=== PATIENT | female | born 1985 | race African-American/Black ===

== ENCOUNTER 2017-10-04 02:59 | Emergency (ER) | payer MEDICARE, MEDICAID ==
[~2017-10-04] VITALS: Ht 165.1 cm; Wt 69.0 kg
[~2017-10-04 02:59] MED LIST: ACYC-63 PO; ALBU18HF IH; AMLO10TA2 PO; AMOX500C PO; CLON1TAB3 PO; DOCU-109 PO; DOXY100C2 PO; Doxycycline Hyclate PO; FAMO-63 PO; FLUD0.1T PO; FLUO20CA16 PO; FURO-69 PO; GABA600T2 PO; INSU100I13 SQ; INSU100I17 SQ; LEXAPRO10 MG PO; LISI10TA2 PO; LISI20TA PO; LORA10TA68 PO; METO-313 PO; METO10TA81 PO; METO25TA4 PO; MULT-505 PO; OMEP20TA8 PO; ONDA4TAB10 PO; ONDA4TAB10 SL; OXYC-323 PO; OXYC-328 PO; PANT40TA3 PO; PROM12.56 PO; SIMV20TA3 PO; TAMS0.4C2 PO; TRAM50TA PO; TRAZ-90 PO; ZOLP10TA PO
--- NOTE | 2017-10-04 03:01 | ED.ADGEN ---
Past History Past Medical History: Abscess, Anemia, CAD, CVA, Depression, Diabetes, High Cholesterol, Hypertension, UTI, Other Past Surgical History: , Other Smoking: Cigarettes, Greater than 1 pack/day Alcohol Use: None Drug Use: None, Cocaine, Marijuana, Other (+ Drug screen for Cocaine and Marjuana in 08/27/2016. ) Adult General Chief Complaint Chief Complaint " min. response-" HPI HPI Patient is a 31 year old female who presents with hx of mental status change at [facility]. Pt. found on Nursing rounds to be very diaphoretic. Pt. glucose was found to be 43, and received glucagon IM. Pt. reportedly now near her baseline mental status of GSC of 6#. Pt. resident fo [facility]. since admission 09/19/2017, after reported respiratory failure, code and CVA with severe anoxic brain damage in Jul of this year.. Pt. Hx. of HTN, GERD, Dysphagia, Bipolar Depression, DM, Enterocolitis, Hyperlipidemia, UTI, Hx. of polysubstance abuse, neuromuscular dysfunction of bladder, acute on chronic respiratory failure with placement of trach. Pt. follows with Dr. Eliza Portillo. Pt. had two Fentanyl patches that were removed in route to hospital because of her decreased mental status. Glucose on arrival at 201. Pt. reportedly on arrival to ED, more alert per paramedics. Pt. does appear to be looking around, but no focus. Smacks her lips. Grunts and grimaces with noxious stimuli. Pt has Minimal response and minimal. cross reacts. Has splints on arms, and air cushions of ankles and feet. Feeding tube, trachea, and port on chest wall. Sister at bedsides states her sister Tonia is at her base line mentally currently. Sister reports her sister had extensive brain damage after Respiratory arrest and Code- CPR after surgery in Jul. of this past year. Pt. reportedly has only brain stem activity since the code at per sister Clarissa Standard. Sister is a guardian and requesting her transfer to . Review of Systems Review of Systems Limited because of pt. mental status Family History Family History DM Current Medications Current Medications Current Medications Medications (Trade) Dose Ordered Sig/Venus Start Time Stop Time Status Last Admin Dose Admin Acetaminophen (Tylenol) 500 mg STK-MED ONCE 10/04/17 05:18 10/04/17 05:19 DC Dextrose 50 ml @ As Directed STK-MED ONCE 10/04/17 03:21 10/04/17 03:22 DC Folic Acid (FOLIC ACID SYRINGE for ER) 5 mg STK-MED ONCE 10/04/17 03:49 10/04/17 03:50 DC Lactated Ringer's 1,000 ml @ 1,000 mls/hr 1X ONCE 10/04/17 06:15 10/04/17 06:24 DC 10/04/17 05:51 1,000 MLS/HR Meropenem (Merrem) 1 gm STK-MED ONCE 10/04/17 05:18 10/04/17 05:19 DC Meropenem 1 gm/ Sodium Chloride 100 ml @ 200 mls/hr ONCE ONCE 10/04/17 05:30 10/04/17 06:00 DC 10/04/17 05:37 200 MLS/HR Multivitamins/ Minerals 10 ml/ Folic Acid 1 mg/ Thiamine HCl 100 mg/Dextrose/ Sodium Chloride 1,011.1 ml @ 1,000 mls/ hr 1X ONCE 10/04/17 03:15 10/04/17 04:15 DC 10/04/17 03:56 1,000 MLS/HR Sodium Chloride 100 ml @ As Directed STK-MED ONCE 10/04/17 05:19 10/04/17 05:20 DC Thiamine HCl 200 mg STK-MED ONCE 10/04/17 03:49 10/04/17 03:50 DC Vancomycin HCl (Vancomycin) 1 gm STK-MED ONCE 10/04/17 04:25 10/04/17 04:26 DC Vancomycin HCl 1 gm/Sodium Chloride 250 ml @ 250 mls/hr 1X ONCE 10/04/17 04:15 10/04/17 05:14 DC 10/04/17 04:15 250 MLS/HR See Nursing for Home meds Allergies Allergies Allergies Coded Allergies Type Severity Reaction Last Updated Verified No Known Drug Allergies 07/05/16 No Physical Exam Physical Exam Constitutional: Min. response to noxious stimuli, no acute distress, non-toxic appearance. [Grimaces with pain- stimuli. HENT: Normocephalic, atraumatic, bilateral external ears normal, oropharynx moist, no oral exudates, nose normal. [] Eyes: PERRLA, EOMI, conjunctiva normal, no discharge. [] Neck: Normal range of motion, no tenderness, supple, no stridor. Trachea. Shield Mask. Cardiovascular:Tachycardia Heart rate regular rhythm, no murmur [] Lungs & Thorax: Bilateral breath sounds equal at apex with some wheezes and basilar crackles on Lt with auscultation [] Abdomen: Bowel sounds normal, soft, no tenderness, no masses, no pulsatile masses. Peg. Surgery scars. Distended, tympanic. Skin: Warm, diaphoretic, no erythema, no rash. Areas of some skin break down on rachelle points. Back: No tenderness, no CVA tenderness. [] Extremities: No tenderness, no cyanosis, no clubbing, ROM intact, no edema. Splinted. Amputation partial Rt foot. Neurologic: Alert at her baseline per sister Clarissa Standard, but not oriented , smacks lips, limited motor function, unable to adequately access sensory function, move limbs to noxious, but does not cross reacts. Psychologic: Affect flat] Current Patient Data Vital Signs Vital Signs Date Time Temp Pulse Resp B/P (MAP) Pulse Ox O2 Delivery O2 Flow Rate FiO2 10/04/17 05:49 121 21 142/115 (124) 100 NonRebreather Mask 12.0 10/04/17 03:00 96.9 Lab Results Laboratory Tests Test 10/04/17 03:20 10/04/17 03:21 10/04/17 03:25 10/04/17 04:10 Urine Collection Type Unknown Urine Color Yellow Urine Clarity Cloudy Urine pH 5.5 Urine Specific [place] 1.015 Urine Protein >100 mg/dl (NEG-TRACE) Urine Glucose (UA) Neg mg/dL (NEG) Urine Ketones (Stick) Trace mg/dL (NEG) Urine Blood Small (NEG) Urine Nitrite Pos (NEG) Urine Bilirubin Neg (NEG) Urine Urobilinogen Dipstick 0.2 mg/dL (0.2 mg/dL) Urine Leukocyte Esterase Large (NEG) Urine RBC 1-2 /HPF (0-2) Urine WBC >40 /HPF (0-4) Urine Squamous Epithelial Cells Mod /LPF Urine Bacteria Many /HPF (0-FEW) Maternal Serum HCG Beta Subunit < 1 mIU/mL (0-6) Sodium Level 140 mmol/L (136-145) Potassium Level 4.5 mmol/L (3.5-5.1) Chloride Level 104 mmol/L (98-107) Carbon Dioxide Level 27 mmol/L (21-32) Anion Gap 9 (6-14) Blood Urea Nitrogen 40 mg/dL (7-20) H Creatinine 1.3 mg/dL (0.6-1.0) H Estimated GFR (Cockcroft-Gault) 57.8 Glucose Level 361 mg/dL (70-99) H Calcium Level 9.7 mg/dL (8.5-10.1) Magnesium Level 1.8 mg/dL (1.8-2.4) Creatine Kinase 35 U/L (26-192) Creatine Kinase MB (Mass) 1.7 ng/mL (0.0-3.6) Creatine Kinase MB Relative Index 4.9 % (0-4) H Troponin I Quantitative 0.038 ng/mL (0-0.055) KO-[id number]-Type Natriuretic Peptide 144 pg/mL (0-124) H Glucose (Fingerstick) 201 mg/dL (70-99) H White Blood Count 24.6 x10^3/uL (4.0-11.0) H Red Blood Count 3.08 x10^6/uL (3.50-5.40) L Hemoglobin 9.5 g/dL (12.0-15.5) L Hematocrit 28.5 % (36.0-47.0) L Mean Corpuscular Volume 93 fL (79-100) Mean Corpuscular Hemoglobin 31 pg (25-35) Mean Corpuscular Hemoglobin Concent 33 g/dL (31-37) Red Cell Distribution Width 18.3 % (11.5-14.5) H Platelet Count 566 x10^3/uL (140-400) #H Neutrophils (%) (Auto) 91 % (31-73) H Lymphocytes (%) (Auto) 4 % (24-48) L Monocytes (%) (Auto) 4 % (0-9) Eosinophils (%) (Auto) 0 % (0-3) Basophils (%) (Auto) 0 % (0-3) Neutrophils # (Auto) 22.4 x10^3uL (1.8-7.7) H Lymphocytes # (Auto) 1.1 x10^3/uL (1.0-4.8) Monocytes # (Auto) 1.0 x10^3/uL (0.0-1.1) Eosinophils # (Auto) 0.1 x10^3/uL (0.0-0.7) Basophils # (Auto) 0.1 x10^3/uL (0.0-0.2) Segmented Neutrophils % 87 % (35-66) H Band Neutrophils % 5 % (0-9) Lymphocytes % 3 % (24-48) L Monocytes % 4 % (0-10) Eosinophils % 1 % (0-5) Platelet Estimate Increased (ADEQUATE) Anisocytosis Slight Reticulocyte Count (auto) 3.4 % (0.5-2.5) H Prothrombin Time 11.0 SEC (9.4-11.4) Prothrombin Time INR 1.1 (0.9-1.1) PTT 27 SEC (23-33) Lactic Acid Level 1.1 mmol/L (0.4-2.0) Influenza Type A (Rapid) Negative (NEGATIVE) Influenza Type B (Rapid) Negative (NEGATIVE) Test 10/04/17 04:40 10/04/17 04:51 Blood pH 7.37 (7.35-7.45) Blood Gas PCO2 40 mmHg (35-45) Blood Gas PO2 149 mmHg (80-100) H Blood Gas HCO3 24 mmol/L (22-26) Arterial Bld O2 Saturation (Calc) 100 % (92-99) H FiO2 100 % Glucose (Fingerstick) 463 mg/dL (70-99) H EKG EKG My interpretation of EKG shows sinus tach at 114, no findings of acute STEMI with contralateral changes. [] Radiology/Procedures Radiology/Procedures CT of head shows no acute shift, mass, bleed, or fracture. Has diffuse chronic infarcts. Diffuse hypointensity relation. Periventricular white matter hypo attenuated. Enlarged lateral ventricles. Basilar ganglia infarcts.[] My interpretation of CXR shows borderline cardiac silhouette. Some blunting a left closed phrenic angle. Very distended gastric bubble. Adequate placement of port. Trachea midline. Course & Med Decision Making Course & Med Decision Making Pertinent Labs and Imaging studies reviewed. (See chart for details) Distended stomach decompressed by feeding tube route. Air removed. Restarted tube feedings. Pt. will be started on 1 Gm Van. and 1 Gm meropenem- based on past Hx. C-dif, Aspiration and NH. status. Pending transfer to per sisters request. Discussed presentation, testing and tx. plan with Triage [facility] at 4:30 hrs Christine - Transfer team- request Lactic before placement. Called lactic 4:45 hr. Advised they will call back. Christine at [phone] transfer team MICHAEL called back 5:13- advised Dr. Arellano will be accepting pt in transfer to . Room [place] 7125 . [] Final Impression Final Impression 1. Mental Status Change 2. Hx. Hypoglycemia[] 3. Leukocytosis 4. Anemia 5. Thrombocytosis 6. Urinary Tract Infection 7. Sepsis 8. Elevated BUN/ Creat 9. Hx. of Anoxic Brain Injury 07/2017 10. Hx. of C- Dif 11. Hx. Neurogenic Bladder 12. Hx. Chronic Respiratory Failure- S/P Trachea 13. Hx. Chronic Renal Dz- DM 14. Past Hx. Polysubstance Abuse / Tobacco Use 15. Hx. of Recurrent Pneumonia- Suspect Aspiration Problems: Dragon Disclaimer Dragon Disclaimer This electronic medical record was generated, in whole or in part, using a voice recognition dictation system. CARLIE DEL RIO MD Oct 04, 2017 03:01
[2017-10-04] MEDS ORDERED: MVI, ADULT NO.4 WITH VIT K 10 ML, FOLIC ACID SYRINGE for ER 1 MG, THIAMINE 100 MG in IV... IV ONE ×4 (03:15)
[2017-10-04] MEDS ORDERED: IV DEXTROSE 5% 50 ML ONE (03:21)
--- NOTE | 2017-10-04 03:22 | RAD ---
EXAM: CT HEAD WITHOUT CONTRAST. HISTORY: Altered mental status. Recent cerebrovascular accident. TECHNIQUE: Computed tomography of the head was performed without intravenous contrast. COMPARISON: October 04, 2007. FINDINGS: There is no intracranial hemorrhage. There are chronic infarcts bilaterally in the basal ganglia. There is new diffuse hypoattenuation throughout the periventricular white matter. The lateral ventricles are moderately enlarged, increased from the prior study. Right basal ganglia calcifications are chronic. The visualized paranasal sinuses appear clear. The orbits are unremarkable. The temporal bones are unremarkable. The calvarium reveals no suspicious lesions. IMPRESSION: 1. The lateral ventricles are now moderately enlarged for patient age with extensive periventricular white matter hypoattenuation. Correlate for acute hydrocephalus. Comparison with more recent head imaging is recommended. 2. Bilateral basal ganglia infarcts. *One or more of the following individualized dose reduction techniques were utilized for this examination: 1. Automated exposure control. 2. Adjustment of the mA and/or kV according to patient size. 3. Use of iterative reconstruction technique. Electronically signed by: Cynthia Rodriguez MD (10/04/2017 3:19 AM) [facility]
--- NOTE | 2017-10-04 03:26 | EKG ---
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
[2017-10-04 03:45] LABS: BASO # 0.1 x10^3/uL (0.0-0.2); BASO % 0 % (0-3); EOS # 0.1 x10^3/uL (0.0-0.7); EOS % 0 % (0-3); HEMATOCRIT 28.5 % (36.0-47.0); HEMOGLOBIN 9.5 g/dL (12.0-15.5); LYMPH # 1.1 x10^3/uL (1.0-4.8); LYMPH % 4 % (24-48); MEAN CORPUSCULAR HEMOGLOBIN 31 pg (25-35); MEAN CORPUSCULAR HGB CONC 33 g/dL (31-37); MEAN CORPUSCULAR VOLUME 93 fL (79-100); MONO % 4 % (0-9); NEUT # 22.4 x10^3uL (1.8-7.7); NEUT % 91 % (31-73); PLATELET COUNT 566 x10^3/uL (140-400); RED BLOOD COUNT 3.08 x10^6/uL (3.50-5.40); RED CELL DISTRIBUTION WIDTH 18.3 % (11.5-14.5); WHITE BLOOD COUNT 24.6 x10^3/uL (4.0-11.0)
[2017-10-04] MEDS ORDERED: THIAMINE 200 MG/2 ML VIAL. IV ONE (03:49)
[2017-10-04] MEDS ORDERED: FOLIC ACID 5 MG/ML SYRINGE for ER IV ONE (03:49)
[2017-10-04 03:54] LABS: BILIRUBIN,URINE NEG (NEG); CLARITY,URINE CLOUDY; COLOR,URINE YELLOW; GLUCOSE,URINE NEG (NEG); NITRITE,URINE POS (NEG); UROBILINOGEN,URINE 0.2 mg/dL (0.2 mg/dL)
[2017-10-04 03:55] LABS: BACTERIA,URINE MANY /HPF (0-FEW); SQUAMOUS EPITHELIAL CELL,UR MOD /LPF; WBC,URINE >40 /HPF (0-4)
[2017-10-04 04:00] LABS: % BANDS 5 % (0-9); % EOS 1 % (0-5); % LYMPHS 3 % (24-48); % MONOS 4 % (0-10); % SEGS 87 % (35-66); ANISOCYTOSIS SLIGHT; PLT ESTIMATE INCREASED (ADEQUATE)
[2017-10-04 04:14] LABS: CALCIUM 9.7 mg/dL (8.5-10.1); CREATININE 1.3 mg/dL (0.6-1.0); GFR 57.8; MAGNESIUM 1.8 mg/dL (1.8-2.4); POTASSIUM 4.5 mmol/L (3.5-5.1)
[2017-10-04] MEDS ORDERED: IV NORMAL SALINE 1,000ML 1,000 ML IV ONE (04:15)
[2017-10-04] MEDS ORDERED: VANCOMYCIN 1 GM in IV NORMAL SALINE 250ML 250 ML IV ONE (04:15)
[2017-10-04] MEDS ORDERED: IV NORMAL SALINE 250ML 250 ML ONE ×2 (04:21→04:25)
[2017-10-04] MEDS ORDERED: VANCOMYCIN 1 GM VIAL. ONE ×2 (04:21→04:25)
[2017-10-04 04:45] LABS: INFLUENZA A PATIENT NEGATIVE (NEGATIVE); INFLUENZA B PATIENT NEGATIVE (NEGATIVE)
[2017-10-04] MEDS ORDERED: ACETAMINOPHEN 500 MG TABLET PO ONE ×2 (05:15→05:18)
[2017-10-04] MEDS ORDERED: MEROPENEM 1 GM VIAL IV ONE (05:18)
[2017-10-04] MEDS ORDERED: IV NORMAL SALINE 100ML 100 ML ONE (05:19)
[2017-10-04] MEDS ORDERED: MEROPENEM 1 GM in IV NORMAL SALINE 100ML 100 ML IV ONE (05:30)
[2017-10-04 05:49] VITALS: BP 142/115
[2017-10-04 06:07] LABS: BGAS PH 7.37 (7.35-7.45)
[2017-10-04] MEDS ORDERED: IV RINGERS SOLUTION,LACTATED 1,000 ML IV ONE (06:15)
--- NOTE | 2017-10-04 07:18 | RAD ---
Portable chest, 10/04/2017: History: Mental status change Comparison is made to a study from 02/16/2016. A right Port-A-Cath extends into the superior aspect of the right atrium. A tracheostomy tube is in place with its tip located well above the ananda. The heart size and pulmonary vascularity are normal. There is minimal discoid atelectasis in the left base. The right lung is clear. There is no evidence of pleural fluid. There is moderate gaseous distention of the stomach. IMPRESSION: 1. Minimal left basilar atelectasis. 2. Moderate gaseous distention of the stomach.
== END 2017-10-04 06:13 | disposition short-term general hospital (02) ==
LOC: ER 02:59
DX: A41.9 Sepsis, unspecified organism (principal); R65.21 Severe sepsis with septic shock; J96.20 Acute and chronic respiratory failure, unspecified whether with hypoxia or hypercapnia; R41.82 Altered mental status, unspecified; D72.829 Elevated white blood cell count, unspecified; D69.6 Thrombocytopenia, unspecified; N39.0 Urinary tract infection, site not specified; E11.22 Type 2 diabetes mellitus with diabetic chronic kidney disease; I12.9 Hypertensive chronic kidney disease with stage 1 through stage 4 chronic kidney disease, or unspecified chronic kidney disease; N18.9 Chronic kidney disease, unspecified; F19.10 Other psychoactive substance abuse, uncomplicated; I25.10 Atherosclerotic heart disease of native coronary artery without angina pectoris; E78.00 Pure hypercholesterolemia, unspecified; F17.210 Nicotine dependence, cigarettes, uncomplicated; F31.9 Bipolar disorder, unspecified; K21.9 Gastro-esophageal reflux disease without esophagitis; F12.10 Cannabis abuse, uncomplicated; F14.10 Cocaine abuse, uncomplicated; Z86.73 Personal history of transient ischemic attack (TIA), and cerebral infarction without residual deficits; Z93.0 Tracheostomy status
CPT/HCPCS: 36415; 36600; 70450; 71045; 80048; 81001; 82553; 82803; 82947; 83605; 83735; 83880; 84484; 84702; 85007; 85025; 85045; 85610; 85730; 87040; 87086; 87186; 87804; 93005; 96365; 96366; 96367; 96368; 99285; J2185; J3370; J7050; J7120; J7030

== ENCOUNTER 2017-10-28 21:02 | Emergency (ER) | payer MEDICARE, OTHER ==
--- NOTE | 2017-10-28 21:05 | ED.ADGEN ---
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 Pt. Family requested pt go to . Paramedics elected to have pt. stabilized initially at [facility] because of borderline sats. and glucose too high to monitor. Pt. sister ILEANA Iglesias, by phone insists pt to be transfer to . Not to be admitted at [facility] or [facility]. Pt. currently min. response to noxious stimuli, but sats improved with suctions. Pt. appears dehydrated. Pt. reported had cardiopulmonary arrest at [facility] where she was too get amputation of toes. Pt. reportedly had multiple CVA 's at time of cardiopulmonary arrest. Pt. recently discharge from a [facility] to home care. Pt. reportedly in a persistent depressed GCS since stoke during cardiopulmonary arrest at [facility] in Jul. 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 Family History Family History DM Current Medications Current Medications Current Medications Medications (Trade) Dose Ordered Sig/Venus Start Time Stop Time Status Last Admin Dose Admin Acetaminophen (Tylenol) 650 mg 1X ONCE 10/28/17 22:45 10/28/17 22:47 DC 10/28/17 23:51 650 MG Ceftriaxone Sodium (Rocephin Im) 2 gm 1X ONCE 10/28/17 23:00 10/28/17 23:01 DC 10/28/17 23:15 2 GM Insulin Human Regular 150 unit/ Sodium Chloride 151.5 ml @ 0 mls/hr 1X ONCE 10/28/17 21:15 10/28/17 21:16 DC 10/28/17 21:57 10.2 MLS/HR Lactated Ringer's 1,000 ml @ 0 mls/hr STAT 10/29/17 01:00 10/29/17 01:59 DC 10/29/17 01:07 1,000 MLS/HR Sodium Chloride 1,000 ml @ 1,000 mls/hr 1X ONCE 10/28/17 21:15 10/28/17 22:14 DC 10/28/17 22:25 1,000 MLS/HR Allergies Allergies Allergies Coded Allergies Type Severity Reaction Last Updated Verified No Known Drug Allergies 07/05/16 No Physical Exam Physical Exam Constitutional: moderate distress, ill in appearance. [] HENT: Normocephalic, atraumatic, bilateral external ears normal, oropharynx dry , no oral exudates, nose normal. []Abrasion / sore Lt lower lip. Eyes: PERRLA, EOMI, conjunctiva normal, no discharge. Disc edge blunted-? Hydrocephalus Neck: Normal range of motion, no tenderness, supple, no stridor. No bruit. Trach. - appears inter canula needs cleaning. Cardiovascular:Tachycardia Heart rate regular rhythm, no murmur []Trach. with discolored secretions on suction. Port on Rt. Lungs & Thorax: Bilateral breath sounds rhonchi on auscultation [] Abdomen: Bowel sounds decreased, soft, no tenderness, no masses, no pulsatile masses. [] GI tube. Old surgery scars. Skin: Warm, dry, no erythema, no rash. [] Breakdown on sacral and feet. Back: No obvious tenderness, no CVA tenderness. [] Extremities:No movement with noxious stimuli, no response to Femoral stick for abg. , no edema. Breakdown feet. Amputations Neurologic:Min. response to noxious stimuli. , does not withdraw to noxious. GSC scale is 4-5, will open eyes to voice. Psychologic: Affect flat, no obvious response to verbal other than opening of eyes, or noxious stimuli. . Current Patient Data Vital Signs Vital Signs Date Time Temp Pulse Resp B/P (MAP) Pulse Ox O2 Delivery O2 Flow Rate FiO2 10/29/17 02:05 91 24 114/91 (99) 97 Room Air 10/28/17 23:29 98.5 10/28/17 21:08 10.0 Lab Results Laboratory Tests Test 10/28/17 21:06 10/28/17 21:16 10/28/17 22:25 10/28/17 22:43 Glucose (Fingerstick) 572 mg/dL (70-99) *H 351 mg/dL (70-99) H White Blood Count 14.6 x10^3/uL (4.0-11.0) H Red Blood Count 3.39 x10^6/uL (3.50-5.40) L Hemoglobin 10.6 g/dL (12.0-15.5) L Hematocrit 32.6 % (36.0-47.0) L Mean Corpuscular Volume 96 fL (79-100) Mean Corpuscular Hemoglobin 31 pg (25-35) Mean Corpuscular Hemoglobin Concent 32 g/dL (31-37) Red Cell Distribution Width 14.5 % (11.5-14.5) Platelet Count 442 x10^3/uL (140-400) H Neutrophils (%) (Auto) 85 % (31-73) H Lymphocytes (%) (Auto) 9 % (24-48) L Monocytes (%) (Auto) 5 % (0-9) Eosinophils (%) (Auto) 1 % (0-3) Basophils (%) (Auto) 1 % (0-3) Neutrophils # (Auto) 12.3 x10^3uL (1.8-7.7) H Lymphocytes # (Auto) 1.3 x10^3/uL (1.0-4.8) Monocytes # (Auto) 0.8 x10^3/uL (0.0-1.1) Eosinophils # (Auto) 0.1 x10^3/uL (0.0-0.7) Basophils # (Auto) 0.1 x10^3/uL (0.0-0.2) Prothrombin Time 11.0 SEC (9.4-11.4) Prothrombin Time INR 1.1 (0.9-1.1) PTT 25 SEC (23-33) Urine Collection Type Unknown Urine Color Yellow Urine Clarity Cloudy Urine pH 5.0 Urine Specific [place] <=1.005 Urine Protein 100 mg/dl (NEG-TRACE) Urine Glucose (UA) >=1000 mg/dL (NEG) Urine Ketones (Stick) 15 mg/dL (NEG) Urine Blood Trace (NEG) Urine Nitrite Pos (NEG) Urine Bilirubin Neg (NEG) Urine Urobilinogen Dipstick 0.2 mg/dL (0.2 mg/dL) Urine Leukocyte Esterase Trace (NEG) Urine RBC 0 /HPF (0-2) Urine WBC 11-20 /HPF (0-4) Urine Squamous Epithelial Cells Occ /LPF Urine Bacteria Mod /HPF (0-FEW) Urine Hyaline Casts Occ /HPF Urine Yeast Present /HPF Maternal Serum HCG Beta Subunit < 1 mIU/mL (0-6) Sodium Level 141 mmol/L (136-145) Potassium Level 4.4 mmol/L (3.5-5.1) Chloride Level 104 mmol/L (98-107) Carbon Dioxide Level 26 mmol/L (21-32) Anion Gap 11 (6-14) Blood Urea Nitrogen 51 mg/dL (7-20) H Creatinine 1.5 mg/dL (0.6-1.0) H Estimated GFR (Cockcroft-Gault) 49.0 Glucose Level 563 mg/dL (70-99) *H Lactic Acid Level 4.0 mmol/L (0.4-2.0) *H Calcium Level 9.7 mg/dL (8.5-10.1) Magnesium Level 2.0 mg/dL (1.8-2.4) Total Bilirubin 0.1 mg/dL (0.2-1.0) L Direct Bilirubin < 0.1 mg/dL (0.0-0.2) Aspartate Amino Transferase (AST) 23 U/L (15-37) Alanine Aminotransferase (ALT) 85 U/L (14-59) H Alkaline Phosphatase 123 U/L (46-116) H Creatine Kinase 15 U/L (26-192) L Creatine Kinase MB (Mass) < 0.5 ng/mL (0.0-3.6) Creatine Kinase MB Relative Index 3.3 % (0-4) Troponin I Quantitative < 0.017 ng/mL (0-0.055) [id number]-[id number]-Type Natriuretic Peptide 86 pg/mL (0-124) Total Protein 7.7 g/dL (6.4-8.2) Albumin 2.5 g/dL (3.4-5.0) L Lipase 34 U/L (73-393) L Urine Opiates Screen Pos (NEG) Urine Methadone Screen Neg (NEG) Urine Barbiturates Neg (NEG) Urine Phencyclidine Screen Neg (NEG) Urine Amphetamine/Methamphetamine Neg (NEG) Urine Benzodiazepines Screen Neg (NEG) Urine Cocaine Screen Neg (NEG) Urine Cannabinoids Screen Neg (NEG) Urine Ethyl Alcohol Pos (NEG) Blood pH 7.39 (7.35-7.45) Blood Gas PCO2 42 mmHg (35-45) Blood Gas PO2 83 mmHg (80-100) Blood Gas HCO3 25 mmol/L (22-26) Arterial Bld O2 Saturation (Calc) 96 % (92-99) FiO2 100 % Test 10/28/17 22:55 10/28/17 23:44 10/28/17 23:50 10/29/17 01:18 Ethyl Alcohol Level < 10 mg/dL (0-10) Glucose (Fingerstick) 279 mg/dL (70-99) H 197 mg/dL (70-99) H Lactic Acid Level 2.1 mmol/L (0.4-2.0) H Test 10/29/17 02:10 10/29/17 03:21 Glucose (Fingerstick) 129 mg/dL (70-99) H 115 mg/dL (70-99) H EKG EKG My interpretation EKG shows a sinus tachycardia at 108 bpm. No finding to acute STEMI of contralateral changes.[] Radiology/Procedures Radiology/Procedures My interpretation of chest x-ray shows borderline cardiac silhouette. No free air in the diaphragm. Tracheostomy. Port. [] My interpretation of CT shows multiple lacuna infarct. Some suggestion of Hydrocephalus, dilated ventricles. Awaiting final. Course & Med Decision Making Course & Med Decision Making Pertinent Labs and Imaging studies reviewed. (See chart for details). Discussed presentation, testing tx. plan with Dr. Bentley- Advised to transfer pt. to per family request. Acuity to high to handle at [facility]. Discussed presentation, testing and tx plan with Christine - Transfer - advised need a repeat lactic acid prior accepting for adequate placement at . To call back when repeat lactic acid completed. Lactic acid called to at 1:06- Christine advised will call back if accepted and room. If accepted will go to Dr. Ellington. [] Final Impression Final Impression 1. DM[]Hyperglycemia 2. Dehydration 3. UTI 4. Hx CVA 2017- [facility]- Hx. of Cardio -pulmonary arrest. 5. Leukocytosis 6. Sepsis 7. Elevated Lactic Acid 8. Malnutrition- Alb. 2.5 9. Elevated BUN /Creat. 10. Tachycardia 11. Possible Hydrocephalus ? Problems: Dragon Disclaimer Dragon Disclaimer This electronic medical record was generated, in whole or in part, using a voice recognition dictation system. CARLIE DEL RIO MD Oct 28, 2017 21:05
[2017-10-28] MEDS ORDERED: IV NORMAL SALINE 1,000ML 1,000 ML IV ONE (21:15)
[2017-10-28] MEDS ORDERED: IV NORMAL SALINE 1,000ML 1,000 ML IV SCH (21:15)
[2017-10-28] MEDS ORDERED: INSULIN REGULAR VIAL 150 UNIT in 0.9 % SODIUM CHLORIDE 150ML 150 ML IV ONE (21:15)
--- NOTE | 2017-10-28 21:35 | EKG ---
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
[2017-10-28 21:45] LABS: BASO # 0.1 x10^3/uL (0.0-0.2); BASO % 1 % (0-3); EOS # 0.1 x10^3/uL (0.0-0.7); EOS % 1 % (0-3); HEMATOCRIT 32.6 % (36.0-47.0); HEMOGLOBIN 10.6 g/dL (12.0-15.5); LYMPH # 1.3 x10^3/uL (1.0-4.8); LYMPH % 9 % (24-48); MEAN CORPUSCULAR HEMOGLOBIN 31 pg (25-35); MEAN CORPUSCULAR HGB CONC 32 g/dL (31-37); MEAN CORPUSCULAR VOLUME 96 fL (79-100); MONO # 0.8 x10^3/uL (0.0-1.1); MONO % 5 % (0-9); NEUT # 12.3 x10^3uL (1.8-7.7); NEUT % 85 % (31-73); PLATELET COUNT 442 x10^3/uL (140-400); RED BLOOD COUNT 3.39 x10^6/uL (3.50-5.40); RED CELL DISTRIBUTION WIDTH 14.5 % (11.5-14.5); WHITE BLOOD COUNT 14.6 x10^3/uL (4.0-11.0)
[2017-10-28 21:54] LABS: BACTERIA,URINE MOD /HPF (0-FEW); BILIRUBIN,URINE NEG (NEG); CLARITY,URINE CLOUDY; COLOR,URINE YELLOW; GLUCOSE,URINE >=1000 mg/dL (NEG); HYALINE CASTS, URINE OCC /HPF; NITRITE,URINE POS (NEG); RBC,URINE 0 /HPF (0-2); SQUAMOUS EPITHELIAL CELL,UR OCC /LPF; UROBILINOGEN,URINE 0.2 mg/dL (0.2 mg/dL); YEAST,URINE PRESENT /HPF
[2017-10-28 21:56] LABS: BARBITURATES NEG (NEG); BENZODIAZEPINES NEG (NEG); CANNABINOIDS NEG (NEG); COCAINE NEG (NEG); METHADONE NEG (NEG); OPIATES POS (NEG); PHENCYCLIDINE NEG (NEG)
[2017-10-28 21:57] LABS: AMPHETAMINE/METHAMPHETAMINE NEG (NEG)
[2017-10-28 22:11] LABS: ALBUMIN 2.5 g/dL (3.4-5.0); ALK PHOS 123 U/L (46-116); ALT (SGPT) 85 U/L (14-59); ANION GAP 11 (6-14); AST (SGOT) 23 U/L (15-37); BLOOD UREA NITROGEN 51 mg/dL (7-20); CALCIUM 9.7 mg/dL (8.5-10.1); CARBON DIOXIDE 26 mmol/L (21-32); CHLORIDE 104 mmol/L (98-107); CREATININE 1.5 mg/dL (0.6-1.0); LIPASE 34 U/L (73-393); POTASSIUM 4.4 mmol/L (3.5-5.1); SODIUM 141 mmol/L (136-145); TOTAL BILIRUBIN 0.1 mg/dL (0.2-1.0); TOTAL PROTEIN 7.7 g/dL (6.4-8.2)
[2017-10-28 22:12] LABS: DIRECT BILIRUBIN < 0.1 mg/dL (0.0-0.2)
[2017-10-28 22:13] LABS: GLUCOSE 563 mg/dL (70-99)
[2017-10-28 22:32] LABS: BGAS PH 7.39 (7.35-7.45)
[2017-10-28] MEDS ORDERED: ACETAMINOPHEN 650 MG/20.3 ML SOLUTION. PO ONE (22:45)
[2017-10-28] MEDS ORDERED: cefTRIAXone IM 1 GM VIAL IM ONE (23:00)
--- NOTE | 2017-10-28 23:44 | RAD ---
PQRS Compliance Statement: One or more of the following individualized dose reduction techniques were utilized for this examination: 1. Automated exposure control 2. Adjustment of the mA and/or kV according to patient size 3. Use of iterative reconstruction technique CT HEAD WITHOUT CONTRAST History: Mental status change Comparison: CT head without contrast, 10/04/2017. Procedure: Axial images are obtained of the head from the skull base through the vertex without IV contrast. Findings: Slightly increased from prior study there is moderate ventriculomegaly. Periventricular white matter hypoattenuation is worse than on the prior study. Unchanged old bilateral basal ganglia lacunar infarcts. Right basal ganglia calcification. No mass-effect, midline shift, hemorrhage, extra-axial fluid collection, or obvious acute infarction is identified. Basilar cisterns are patent. Bone windows demonstrate no acute calvarial abnormality. The visualized paranasal sinuses are clear. Mastoid air cells are well aerated. IMPRESSION: 1. Moderate ventriculomegaly is slightly worse. Periventricular white matter hypoattenuation has increased from prior study. Cannot exclude acute hydrocephalus. 2. Old bilateral basal ganglia lacunar infarcts. Electronically signed by: Mehdi Restrepo MD (10/28/2017 11:41 PM) [facility]
[2017-10-29] MEDS ORDERED: IV RINGERS SOLUTION,LACTATED 1,000 ML IV ONE
[2017-10-29] MEDS ORDERED: IV RINGERS SOLUTION,LACTATED 1,000 ML IV SCH (01:00)
[2017-10-29 03:35] VITALS: BP 138/86
--- NOTE | 2017-10-29 08:38 | RAD ---
AP chest x-ray History: Hyperglycemia, unable to follow breathing instructions. Comparison: Chest x-ray October 04, 2017. Findings: Tracheostomy. Right subclavian portacatheter tip proximal right atrium. Heart size stable. Patient is rotated to the left. No pneumothorax or pleural effusions. Retrocardiac left lower lobe opacity partially obscuring the diaphragm indicating airspace disease. Bones are unremarkable. Impression: Retrocardiac left lower lobe airspace disease.
== END 2017-10-29 03:44 | disposition short-term general hospital (02) ==
LOC: ER 21:02
DX: E11.65 Type 2 diabetes mellitus with hyperglycemia (principal); E86.0 Dehydration; N39.0 Urinary tract infection, site not specified; D72.829 Elevated white blood cell count, unspecified; A41.9 Sepsis, unspecified organism; E46 Unspecified protein-calorie malnutrition; R00.0 Tachycardia, unspecified; R79.89 Other specified abnormal findings of blood chemistry; R94.4 Abnormal results of kidney function studies; R74.0 Nonspecific elevation of levels of transaminase and lactic acid dehydrogenase [LDH]; I25.10 Atherosclerotic heart disease of native coronary artery without angina pectoris; E11.9 Type 2 diabetes mellitus without complications; E78.00 Pure hypercholesterolemia, unspecified; I10 Essential (primary) hypertension; F32.9 Major depressive disorder, single episode, unspecified; F17.210 Nicotine dependence, cigarettes, uncomplicated; F12.10 Cannabis abuse, uncomplicated; F14.10 Cocaine abuse, uncomplicated; Z86.73 Personal history of transient ischemic attack (TIA), and cerebral infarction without residual deficits; Z86.2 Personal history of diseases of the blood and blood-forming organs and certain disorders involving the immune mechanism
CPT/HCPCS: 36415; 70450; 71045; 80048; 80076; 80307; 81001; 82553; 82803; 82947; 83605; 83690; 83735; 83880; 84443; 84484; 84702; 85025; 85045; 85610; 85730; 87040; 87086; 93005; 96365; 96366; 96372; 99285; G0480; J0696; J1815; J7120; P9612; G0479; J7030

== ENCOUNTER 2017-11-04 19:07 | Emergency (ER) | payer MEDICARE, OTHER ==
[~2017-11-04] VITALS: Ht 165.1 cm; Wt 69.0 kg
[2017-11-04] MEDS ORDERED: IV RINGERS SOLUTION,LACTATED 1,000 ML IV SCH (19:25)
--- NOTE | 2017-11-04 19:25 | ED.ADGEN ---
Past History Past Medical History: Abscess, Anemia, CAD, CVA, Depression, Diabetes, High Cholesterol, Hypertension, UTI, Other Past Surgical History: , Other Smoking: Cigarettes, Greater than 1 pack/day Alcohol Use: None Drug Use: None Adult General Chief Complaint Chief Complaint -" Hx of difficulty breathing, possible trach. plugging." HPI HPI Patient is a 31 year old female who presents with hx of dyspnea and plugging of trach. Pt. know to nursing staff for long hx of DM and poor control. Pt. in Jul. this year had a cardiopulmonary arrest in Jul. at [facility]. Since that event pt. has had GSC scale of 3 to 4. Pt. currently being tx for UTI. Pt. was seen previously here for urosepsis and since that time has been discharge back home. Pt. tonight apparently has some trachea plugging. Pt. trach. removed and cleaned. Suction with NS. Pt. saturations are 100% on room air. Pt. over all looks much better than prior ER visit on 10/28. Review of Systems Review of Systems Pt. is non-responsive to pain or noxious stimuli- this is her baseline Family History Family History Noncontributory] Current Medications Current Medications Current Medications Medications (Trade) Dose Ordered Sig/Venus Start Time Stop Time Status Last Admin Dose Admin Albuterol/ Ipratropium (Duoneb) 3 ml 1X ONCE 11/04/17 19:45 11/04/17 19:46 DC Bacitracin/ Polymyxin B Sulfate (Polysporin) 15 holli STK-MED ONCE 11/04/17 22:59 11/04/17 23:00 DC Lactated Ringer's 1,000 ml @ 1,000 mls/hr Q1H 11/04/17 19:25 11/04/17 20:24 DC 11/04/17 19:25 1,000 MLS/HR Allergies Allergies Allergies Coded Allergies Type Severity Reaction Last Updated Verified No Known Drug Allergies 07/05/16 No Physical Exam Physical Exam Constitutional:, no acute distress, after trach. cleaned HENT: Normocephalic, atraumatic, bilateral external ears normal, oropharynx dry , no oral exudates, nose normal. Dentition Eyes: PERRLA, EOMI, conjunctiva normal, no discharge. [] Neck: Normal range of motion, no tenderness, supple, no stridor. Trach. Cardiovascular:Tachycardia Heart rate regular rhythm, no murmur [] Lungs & Thorax: Bilateral breath sounds clear to auscultation []Port. Abdomen: Bowel sounds normal, soft, no tenderness, no masses, no pulsatile masses. [] G tube. Skin: Warm, dry, no erythema, no rash. [] Sacral breakdown- ulcers Back: No tenderness, no CVA tenderness. [] Extremities: No tenderness, no cyanosis, no clubbing, ROM intact, no edema. [] Rt. fore foot amputation. Distal Capillary refill non - existent in fingers and toes- nl presentation for pt. Neurologic: Non- responsive to noxious stimuli. No response ABG and femoral stick for blood.] Psychologic: Flat affect Current Patient Data Lab Results Laboratory Tests Test 11/04/17 18:49 11/04/17 19:23 11/04/17 19:39 11/04/17 21:15 POC Urine HCG, Qualitative hcg negative (Negative) Glucose (Fingerstick) 149 mg/dL (70-99) H Urine Collection Type Unknown Urine Color Yellow Urine Clarity Hazy Urine pH 7.0 Urine Specific [place] 1.015 Urine Protein 100 mg/dl (NEG-TRACE) Urine Glucose (UA) 500 mg/dL (NEG) Urine Ketones (Stick) Neg mg/dL (NEG) Urine Blood Neg (NEG) Urine Nitrite Neg (NEG) Urine Bilirubin Neg (NEG) Urine Urobilinogen Dipstick 0.2 mg/dL (0.2 mg/dL) Urine Leukocyte Esterase Neg (NEG) Urine RBC 11-20 /HPF (0-2) Urine WBC 5-10 /HPF (0-4) Urine Squamous Epithelial Cells Many /LPF Urine Amorphous Sediment Present /HPF Urine Bacteria 0 /HPF (0-FEW) Urine Yeast Present /HPF Urine Opiates Screen Neg (NEG) Urine Methadone Screen Neg (NEG) Urine Barbiturates Neg (NEG) Urine Phencyclidine Screen Neg (NEG) Urine Amphetamine/Methamphetamine Neg (NEG) Urine Benzodiazepines Screen Neg (NEG) Urine Cocaine Screen Neg (NEG) Urine Cannabinoids Screen Neg (NEG) Urine Ethyl Alcohol Pos (NEG) White Blood Count 11.2 x10^3/uL (4.0-11.0) H Red Blood Count 3.13 x10^6/uL (3.50-5.40) L Hemoglobin 9.6 g/dL (12.0-15.5) L Hematocrit 28.6 % (36.0-47.0) L Mean Corpuscular Volume 91 fL (79-100) # Mean Corpuscular Hemoglobin 31 pg (25-35) Mean Corpuscular Hemoglobin Concent 34 g/dL (31-37) Red Cell Distribution Width 14.2 % (11.5-14.5) Platelet Count 223 x10^3/uL (140-400) Neutrophils (%) (Auto) 69 % (31-73) Lymphocytes (%) (Auto) 22 % (24-48) L Monocytes (%) (Auto) 7 % (0-9) Eosinophils (%) (Auto) 2 % (0-3) Basophils (%) (Auto) 1 % (0-3) Neutrophils # (Auto) 7.7 x10^3uL (1.8-7.7) Lymphocytes # (Auto) 2.5 x10^3/uL (1.0-4.8) Monocytes # (Auto) 0.8 x10^3/uL (0.0-1.1) Eosinophils # (Auto) 0.2 x10^3/uL (0.0-0.7) Basophils # (Auto) 0.1 x10^3/uL (0.0-0.2) Prothrombin Time 9.7 SEC (9.4-11.4) Prothrombin Time INR 0.9 (0.9-1.1) Sodium Level 135 mmol/L (136-145) L Potassium Level 4.3 mmol/L (3.5-5.1) Chloride Level 101 mmol/L (98-107) Carbon Dioxide Level 25 mmol/L (21-32) Anion Gap 9 (6-14) Blood Urea Nitrogen 29 mg/dL (7-20) H Creatinine 1.0 mg/dL (0.6-1.0) Estimated GFR (Cockcroft-Gault) 78.2 Glucose Level 121 mg/dL (70-99) H Lactic Acid Level 1.3 mmol/L (0.4-2.0) Calcium Level 9.5 mg/dL (8.5-10.1) Magnesium Level 1.8 mg/dL (1.8-2.4) Total Bilirubin 0.1 mg/dL (0.2-1.0) L Direct Bilirubin < 0.1 mg/dL (0.0-0.2) Aspartate Amino Transferase (AST) 42 U/L (15-37) H Alanine Aminotransferase (ALT) 122 U/L (14-59) H Alkaline Phosphatase 127 U/L (46-116) H Creatine Kinase 266 U/L (26-192) H Troponin I Quantitative < 0.017 ng/mL (0-0.055) JL-Dvw-U-Type Natriuretic Peptide 45 pg/mL (0-124) Total Protein 7.5 g/dL (6.4-8.2) Albumin 2.5 g/dL (3.4-5.0) L EKG EKG My interpretation of EKG shows a sinus tachycardia at 107 beats per minute.. No other acute morphology appreciated[] Radiology/Procedures Radiology/Procedures My interpretation of chest x-ray shows borderline cardiac silhouette. Port. Trach. Large amount of gas in stomach with G-tube port. No acute findings some prior x-ray on file.[] Course & Med Decision Making Course & Med Decision Making Pertinent Labs and Imaging studies reviewed. (See chart for details). Nursing for given to POA. Will discharge back home. Pt. to continue current feedings, antibiotics. Must of home care supply humidified oxygen to titrate. Return if any concerns. Suction with normal saline as needed. [] Final Impression Final Impression 1. Dyspnea 2. Trachea Plugging 3. Anemia 4. Leukocytosis 5. Elevated BUN 6. Elevated Glucose- DM 7. Elevated LFT's 8. Severe Malnutrition- Alb. 2.5 9. Decub Ulcers 10. UTI 11. Hx. Diffuse Brain Injury during Cardiopulmonary Arrest in 2017 12. [Severe PVDz Problems: Dragon Disclaimer Dragon Disclaimer This electronic medical record was generated, in whole or in part, using a voice recognition dictation system. CARLIE DEL RIO MD Nov 04, 2017 19:25
--- NOTE | 2017-11-04 19:44 | EKG ---
[address] [address] Test Date: 2017-11-04 Test Time: 19:40:16 Pat Name: DIMITRY MACIEL Department: Room: Gender: F Rd Project Manager: CANDE : 1985 Requested By: CARLIE DEL RIO Order Number: [id number] Reading MD: Measurements Intervals [place] Rate: 107 P: 38 W[place]: 114 QRS: 9 QRSD: 70 T: 38 QT: 312 QTc: 422 Interpretive Statements SINUS TACHYCARDIA OTHERWISE NORMAL ECG RI6.01 Compared to ECG 10/04/2017 03:22:45 No significant changes
[2017-11-04] MEDS ORDERED: IPRATRPIUM/ALBUTEROL 0.5/2.5MG 3 ML NEBU. NEB ONE (19:45)
[2017-11-04 20:28] LABS: AMPHETAMINE/METHAMPHETAMINE NEG (NEG); BARBITURATES NEG (NEG); BENZODIAZEPINES NEG (NEG); CANNABINOIDS NEG (NEG); COCAINE NEG (NEG); METHADONE NEG (NEG); OPIATES NEG (NEG); PHENCYCLIDINE NEG (NEG)
[2017-11-04 20:44] LABS: BILIRUBIN,URINE NEG (NEG); CLARITY,URINE HAZY; COLOR,URINE YELLOW; GLUCOSE,URINE 500 mg/dL (NEG); NITRITE,URINE NEG (NEG); UROBILINOGEN,URINE 0.2 mg/dL (0.2 mg/dL)
[2017-11-04 20:45] LABS: AMORPHOUS SEDIMENT,UR PRESENT /HPF; BACTERIA,URINE 0 /HPF (0-FEW); SQUAMOUS EPITHELIAL CELL,UR MANY /LPF; YEAST,URINE PRESENT /HPF
[2017-11-04 22:22] LABS: ALBUMIN 2.5 g/dL (3.4-5.0); ALK PHOS 127 U/L (46-116); ALT (SGPT) 122 U/L (14-59); ANION GAP 9 (6-14); AST (SGOT) 42 U/L (15-37); BLOOD UREA NITROGEN 29 mg/dL (7-20); CALCIUM 9.5 mg/dL (8.5-10.1); CARBON DIOXIDE 25 mmol/L (21-32); CHLORIDE 101 mmol/L (98-107); GFR 78.2; GLUCOSE 121 mg/dL (70-99); MAGNESIUM 1.8 mg/dL (1.8-2.4); POTASSIUM 4.3 mmol/L (3.5-5.1); SODIUM 135 mmol/L (136-145); TOTAL BILIRUBIN 0.1 mg/dL (0.2-1.0); TOTAL PROTEIN 7.5 g/dL (6.4-8.2)
[2017-11-04 22:23] LABS: BASO # 0.1 x10^3/uL (0.0-0.2); BASO % 1 % (0-3); EOS # 0.2 x10^3/uL (0.0-0.7); EOS % 2 % (0-3); HEMATOCRIT 28.6 % (36.0-47.0); HEMOGLOBIN 9.6 g/dL (12.0-15.5); LYMPH # 2.5 x10^3/uL (1.0-4.8); LYMPH % 22 % (24-48); MEAN CORPUSCULAR HEMOGLOBIN 31 pg (25-35); MEAN CORPUSCULAR HGB CONC 34 g/dL (31-37); MONO # 0.8 x10^3/uL (0.0-1.1); MONO % 7 % (0-9); NEUT # 7.7 x10^3uL (1.8-7.7); NEUT % 69 % (31-73); PLATELET COUNT 223 x10^3/uL (140-400); RED BLOOD COUNT 3.13 x10^6/uL (3.50-5.40); RED CELL DISTRIBUTION WIDTH 14.2 % (11.5-14.5); WHITE BLOOD COUNT 11.2 x10^3/uL (4.0-11.0)
[2017-11-04 22:24] LABS: DIRECT BILIRUBIN < 0.1 mg/dL (0.0-0.2)
[2017-11-04] MEDS ORDERED: BACITRACIN/POLYMYXIN B TOPICAL OINT 15GM TUBE. TP ONE (22:59)
[2017-11-04 23:00] LABS: MEAN CORPUSCULAR VOLUME 91 fL (79-100)
[2017-11-04 23:13] VITALS: BP 129/92
--- NOTE | 2017-11-05 10:02 | RAD ---
PORTABLE CHEST 1V Clinical Indication: dyspnea Comparison: Chest radiograph dated 10/28/2017 Findings: Unchanged right subclavian Port-A-Cath and tracheostomy cannula. Low lung volume. Right mid lung zone patchy airspace opacities. Unchanged pulmonary vasculature. No pleural effusion or pneumothorax. The cardiomediastinal silhouette and great vessels are unchanged. Gaseous distention of the stomach. IMPRESSION: 1. Right midlung zone patchy airspace opacities. Findings could relate to infectious process, aspiration, or a symmetric pulmonary edema. Recommend continued radiographic follow-up to resolution. 2. Gaseous distention of the stomach. 3. Unchanged life support devices as above.
== END 2017-11-04 23:30 | disposition home or self-care (01) ==
LOC: ER 19:07
DX: J39.8 Other specified diseases of upper respiratory tract (principal); D64.9 Anemia, unspecified; D72.829 Elevated white blood cell count, unspecified; R79.89 Other specified abnormal findings of blood chemistry; E11.9 Type 2 diabetes mellitus without complications; E43 Unspecified severe protein-calorie malnutrition; L89.159 Pressure ulcer of sacral region, unspecified stage; N39.0 Urinary tract infection, site not specified; E78.00 Pure hypercholesterolemia, unspecified; I10 Essential (primary) hypertension; I25.10 Atherosclerotic heart disease of native coronary artery without angina pectoris; F17.210 Nicotine dependence, cigarettes, uncomplicated; Z86.73 Personal history of transient ischemic attack (TIA), and cerebral infarction without residual deficits
CPT/HCPCS: 36415; 71045; 80048; 80076; 80307; 81001; 81025; 82550; 82947; 83605; 83735; 83880; 84443; 84484; 85025; 85045; 87040; 87086; 93005; 99285; J7120; 85610; G0479